=== PATIENT | female | born 1990 | race Caucasian/White ===

== ENCOUNTER 2021-03-27 10:31 | Outpatient (RCR) | payer OTHER, SELFPAY ==
[2021-03-27] MEDS: TETANUS,DIPHTHERIA,AC PERTUSSIS ADULT (0.5 ML) BOOSTRIX IM (10:30)
[2021-03-27] MEDS: RHO(D) IMMUNE GLOBULIN 300 MCG/2 ML SYRINGE IM (10:31)
== END 2021-06-22 23:59 | disposition home or self-care (01) ==
LOC: ANHLAB 10:31
PROVIDERS: PCP Family Medicine; Visit Provider Student in an Organized Health Care Education/Training Program
DX: Z29.13 Encounter for prophylactic Rho(D) immune globulin (principal); O36.0190 Maternal care for anti-D [Rh] antibodies, unspecified trimester, not applicable or unspecified; Z3A.00 Weeks of gestation of pregnancy not specified
CPT/HCPCS: 36415; 85461; 90384; 96372; J2790

== ENCOUNTER 2021-06-12 05:58 | Inpatient (IN) | payer OTHER, SELFPAY ==
[2021-06-12] VITALS (139 sets, daily range): BP systolic 89–190; BP diastolic 41–168; PULSE 25–243; TEMP 36.6–38.4; O2SAT 74–100; BMI 31.4
--- NOTE | 2021-06-12 05:58 | LDADM ---
This patient, Whitney Arboleda, was admitted to Labor/Delivery/Recovery 104 on 06/12/21 at 05:58. Plans for labor, pain management and were discussed with patient. Patient/family oriented to hospital policies and general routines including ID bracelet, bed and alarms, visiting hours, pain management, procedures, bathroom and other care routines, personal items, smoking policy, room service/diet and guest tray routines, security routines, and visiting hours. Patient/Family are encouraged to report perceived risks to care and to ask questions if they do not understand what they are told or what they should do. See OBIX for further documentation.
--- OUTSIDE RECORDS SUMMARY | 2021-06-12 06:02 | XMS_ITS ---
:1990 Author Care Team Providers Name Role Phone SATYA BARRY MD Primary Care Provider [phone] Allergies Code Code System Name Reaction Severity Status Onset Sulfa Rash Moderate Active ? (Sulfonamid e Antibiotics ) Medications Name Status Start Date Stop Date ? ? escitalopram 10 mg tablet Active ? Not av ailable Take 1 tablet every day by oral route. fluticasone propionate 50 mcg/actuation nasal spray,suspension C ompleted ? 07/13/2019 [place] 1 spray every day by intranasal route. hydroxyzine HCl 25 mg tablet Active ? Not available TAKE 1 TABLET BY MOUTH THREE TIMES DAILY NEEDED sertraline 50 mg tablet Completed ? 07/13/19 20 Take 1 tablet every day by oral route. Problems Name Status Onset Date Source ? Anxiety Active 01/27/2019 ? At High Risk for Breast Cancer Active 03/17/2021 ? Blood Group O Rh(D) Negative Active 04/04/2021 ? Procedures Notes: Pt. denies. Results Lab Results Date Name Specimen Result Interpretation Description Value Range Status Address ? 07/13/2019 TSH + ? Tsh 1.110 0.450-4.500 Final L [facility]: Free T4, uIU/mL uIU/mL [address], [place] ? ? ?
--- OUTSIDE RECORDS SUMMARY | 2021-06-12 06:02 | XMS_ITS ---
:1990 Author Care Team Providers Name Role Phone JeradMagnolia Primary Care Provider Unavailable Allergies Code Code System Name Reaction Severity Status Onset Sulfa ? ? Active ? (Sulfonamid e Antibiotics ) Medications Name Status Start Date Stop Date ? ? cefadroxil 500 mg capsule Completed 06/18/20172017 take 1 capsule by oral route every 12 hours for 10 days cephalexin 500 mg tablet Completed 06/21/2017 018 take 1 tablet by oral route every 6 hours ciprofloxacin 500 mg tablet Completed 08/27/201206/2012 take 1 tablet (500MG) by oral route every 12 hours dicloxacillin 500 mg capsule Completed 06/16/2017 take 1 capsule by oral route every 6 h ours 1 hour before a meal or 2 hours after a meal dicyclomine 20 mg tablet Completed ? 020 escitalopram 10 mg tablet Active ? Not av ailable Flagyl 500 mg tablet Completed 11/19/2016 11/19/2016 take 1 tablet by oral route 2 times every day fluticasone propionate 50 Completed ? 2019 mcg/actuation nasal spray,suspension hydroxyzine HCl 25 mg tablet Active ? Not available ketorolac 10 mg tablet Completed ? 0 Mirena 20 mcg/24 hours (7 yrs) Active 08/08/2017 N ot available 52 mg intrauterine device Mononessa (28) 0.25 mg-35 mcg tablet Completed 12/31/2011 01/01/2013 take 1 tablet by oral route every day
--- OUTSIDE RECORDS SUMMARY | 2021-06-12 06:02 | XMS_ITS | Continuity of Care Document ---
:1990 Author Organization [facility] Care Team Providers Name Role Phone DOD-PR Unavailable Unavailable Results Combined list of recent chemistry, hematology and other laboratory results from [facility] [employer] [facility], ranging from 15 months to all on record, depending upon the facility. Order Results Value Reference Date Interpretation Specimen Commen ts Source Name Range MMRV Varicella POSITIVE 04/06 INTERPRETATION(S) SERUM INT ERPRETAT 375th Panel : NEGATIVE: ION(S): Medi cara Virus Ab Absence of NEGATIVE: Gr oup IgG detectable VZV Absence o f Hermel[place] IgG antibodies. A detect able AFB negative result VZV IgG ([facility]) indicates no antibodies. detectable VZV A negativ e antibody, but result does not rule out indica shawna acute infection. no It should be detectable noted that the VZV test usually antibody, scores negative but does in infected not rule patients during out acut e the incubation infection . period and the It should early stages of be noted infection. If that the exposure to test varicella-zoster usually virus is scores
[2021-06-12] MEDS: LACTATED RINGERS 1,000 ML 125 ML IV CONT ×2 (06:35→13:45)
[2021-06-12] MEDS: OXYTOCIN 30 UNITS/NS 500 ML 30 UNITS/500 ML BAG IV CONT (06:35)
[2021-06-12 06:49] LABS: Basophils Absolute Auto 0.1 K/mm3 (0.0-0.1); Basophils Percent Auto 0.6 % (0.2-1.2); Eosinophils Absolute Auto 0.1 K/mm3 (0-0.3); Eosinophils Percent Auto 0.8 % (0-4.4); Hematocrit 38.1 % (37.0-47.0); Hemoglobin 13.3 g/dL (12.0-15.0); Immature Granulocyte Absolute 0.18 K/mm3 (0.00-0.031); Immature Granulocyte Percent A 2.3 % (0-0.5); Lymphocytes Absolute Auto 2.49 K/mm3 (0.9-3.2); Lymphocytes Percent Auto 31.6 % (18.3-44.2); Mean Corpuscular HGB Conc 34.9 g/dl (32-36); Mean Corpuscular Hemoglobin 32.8 pg (26-34); Mean Corpuscular Volume 93.8 fl (80-100); Mean Platelet Volume 10.5 fl (7.4-10.4); Monocytes Absolute Auto 0.5 K/mm3 (0.1-0.6); Monocytes Percent Auto 6.9 % (2.6-8.5); Neutrophils Absolute Auto 4.6 K/mm3 (1.3-6.7); Neutrophils Percent Auto 57.8 % (45.5-73.1); Platelet Count Result 240 k/mm3 (150-375); Red Blood Count 4.06 M/mm3 (4.2-5.4); Red Cell Distribution Width 12.4 % (11.5-14.5); White Blood Count 7.9 K/mm3 (4.5-10.0)
--- NOTE | 2021-06-12 07:40 | PM.IMHP ---
H&P: HPI History of Present Illness Date/Time: 06/12/21 07:40 Chief Complaint: intrauterine at term Narrative: 30 yo at 39w3d who presents for elective IOL. Her has been uncomplicated thus far. She denies any regular contractions, leakage of fluid or vaginal bleeding. Review of Systems Cardiovascular: Cardiovascular: Denies chest pain, Denies leg edema, Denies palpitations, Denies dyspnea and Denies dyspnea on exertion Respiratory: Respiratory: Denies cough, Denies dyspnea and Denies dyspnea on exertion Gastrointestinal: Gastrointestinal: Denies abdominal pain, Denies constipation, Denies diarrhea, Denies nausea and Denies vomiting Genitourinary: Genitourinary: Denies hematuria, Denies urinary frequency, Denies dysuria, Denies pelvic pain, Denies urinary incontinence and Denies vaginal discharge Neurologic: Reports system reviewed and no additional complaints, except as documented Psychiatric: Psychiatric: Reports no additional psychiatric complaints Endocrine: Endocrine: Denies palpitations [facility], [facility] Family History Family History (Updated 05/16/21 @ 12:39 by Dedrick Howard RN) Mother Breast cancer in female Grandparent Breast cancer in female Social History Social History Substance use: never Spiritual care concerns: No Meds Home Medications and Allergies Home Medications Medication Instructions Recorded Confirmed Type prenat.vits,cara,pvr-mmvy-kvxzt 1 tablet PO DAILY 05/16/21 05/16/21 History [ #2] sertraline 50 mg PO DAILY 05/16/21 05/16/21 History Allergies Allergy/AdvReac Type Severity Reaction Status Date / Time sulfamethoxazole Allergy Mild Verified 04/29/17 15:31 trimethoprim Allergy Mild Verified 04/29/17 15:31 Vital Signs Vital Signs - 24 hr 06/12/21 06:21 06/12/21 06:22 06/12/21 06:30 Temperature 36.8 C Pulse Rate 77 74 Blood Pressure 121/81 127/87 06/12/21 06:46 06/12/21 07:01 06/12/21 07:16 Temperature Pulse Rate 79 72 68 Blood Pressure 110/91 H 121/79 118/83 06/12/21 07:30 Temperature Pulse Rate 71 Blood Pressure 125/83 Exam Const: General: no acute distress Eyes: EOM: EOMs intact bilaterally Neck: Neck: supple Thyroid: thyroid normal Chest: Breast/axilla inspection: normal inspection of the breasts Breast/axilla palpation: normal palpation of the breasts, normal palpation of the axillae and no axillary lymphadenopathy Resp: Effort & Inspection: normal respiratory effort Auscultation: clear to auscultation bilaterally Cardio: Rate: regular rate Rhythm: regular rhythm GI: Inspection: non-distended and other (Gravid) GI Palp: Yes Soft to palpation, No Tenderness to palpation present (GI) and No Guarding due to palpation present (GI) Auscultation: normal bowel sounds : Speculum Exam - Vagina: No vaginal bleeding OB/external & speculum: external exam normal; No vaginal bleeding Skin: General skin exam: normal color and no rashes or lesions noted Neuro: Cognition (Neuro): normal cognition Speech: normal speech Extrem: General: normal to inspection Psych: Mental Status: mental status grossly normal Affect: normal affect H&P: Results Labs Labs: Short CBC 06/12/21 Range/Units 06:36 WBC 7.9 (4.5-10.0) K/mm3 Hgb 13.3 (12.0-15.0) g/dL Hct 38.1 (37.0-47.0) % Plt Count 240 (150-375) k/mm3 Assessment and Plan Assessment and plan (1) Supervision of high risk , unspecified, third trimester: Code(s): O09.93 - Supervision of high risk , unspecified, third trimester Status: Acute Assessment and Plan: 30 yo at 39w3d who presents for elective IOL admit to L&D routine admission orders Rh neg, will need rhogam PP GBS neg FHT cat 1 pitocin augmentation continuous EFM
--- NOTE | 2021-06-12 10:01 | WPDANESEPP ---
Anes - Eval Pre Procedure Date/Time: 06/12/21 10:01 Pre Op Diagnosis: IOL Patient Data Age: 30 Gender: F Height: 1.57 m Weight: 78 kg Last Vital Signs Temp 36.7 C 06/12/21 08:08 Pulse 70 06/12/21 09:30 BP 190/168 H 06/12/21 10:01 Allergies Allergy/AdvReac Type Severity Reaction Status Date / Time sulfamethoxazole Allergy Mild Rash Verified 06/12/21 08:13 trimethoprim Allergy Mild Rash Verified 06/12/21 08:13 Home Medications Medication Instructions Recorded Confirmed Type prenat.vits,cara,xog-[id number]-hsgot 1 tablet PO DAILY 05/16/21 06/12/21 History [ #2] sertraline 50 mg PO DAILY 05/16/21 06/12/21 History Laboratory Tests 06/12/21 06/12/21 06/12/21 06:36 06:36 06:36 WBC 7.9 K/mm3 K/mm3 (4.5-10.0) RBC 4.06 M/mm3 L M/mm3 (4.2-5.4) Hgb 13.3 g/dL g/dL (12.0-15.0) Hct 38.1 % % (37.0-47.0) MCV 93.8 fl fl (80-100) MCH 32.8 pg pg (26-34) MCHC 34.9 g/dl g/dl (32-36) RDW 12.4 % % (11.5-14.5) Plt Count 240 k/mm3 k/mm3 (150-375) MPV 10.5 fl H fl (7.4-10.4) Immature Gran % (Auto) 2.3 % H % (0-0.5) Neut % (Auto) 57.8 % % (45.5-73.1) Lymph % (Auto) 31.6 % % (18.3-44.2) [place] % (Auto) 6.9 % % (2.6-8.5) Eos % (Auto) 0.8 % % (0-4.4) Baso % (Auto) 0.6 % % (0.2-1.2) Lymph # (Auto) 2.49 K/mm3 K/mm3 (0.9-3.2) [place] # (Auto) 0.5 K/mm3 K/mm3 (0.1-0.6) Eos # (Auto) 0.1 K/mm3 K/mm3 (0-0.3) Baso # (Auto) 0.1 K/mm3 K/mm3 (0.0-0.1) Abs Immat Gran (auto) 0.18 K/mm3 H K/mm3 (0.00-0.031) Absolute Neuts (auto) 4.6 K/mm3 K/mm3 (1.3-6.7) Absolute Nucleated RBC 0.0 K/mm3 K/mm3 (0.0-0.012) Nucleated RBC % 0.0 % % (0.0-0.2) RPR Pending Blood Type O Negative Antibody Screen Negative Patient hx anesthesia problems: none Family hx anesthesia problems: none Results Review: All pre-operative results and documents have been reviewed as part of the pre-operative evaluation. [facility] Past Medical History Medical History (Updated 06/12/21 @ 10:02 by Saniya Johansen CRNA) Anxiety Obese Family History Family History Mother Breast cancer in female Grandparent Breast cancer in female Social History Social History Substance use: never Spiritual care concerns: No Exam Day of Procedure 06/12/21 10:01 Patient weight: obese Heart: regular rate and rhythm Lungs: clear to auscultation Airway: Mallampati scale
[2021-06-12 11:22] LABS: Rapid Plasma Reagin Non-Reactive (NonReactive)
[2021-06-12] MEDS: ONDANSETRON INJ 4 MG/2 ML VIAL IV PUSH (17:51)
[2021-06-12] MEDS: miSOPROStol 200 MCG TABLET 1000 MCG RECTAL (22:05)
--- NOTE | 2021-06-12 22:10 | PM.OBPRVD ---
OB - Delivery Note Procedure Delivery date: 05/04/21 Intrapartal events: Ineffective Pushing and Prolonged 2nd Stage > 2.5 hours Induction method: per pitocin protocol Delivery augmentation: rupture of membranes Delivery monitor: external FHT and internal uterine Route of delivery: forceps Indication for instrumentation: other (prolonged 2nd stage of labor) Episiotomy description: None Laceration Description: Vaginal - 1st Degree Delivery repair: vicryl Specimen: Yes (placenta) Quantitative Blood Loss (ml): 250 Anesthesia type: Epidural Disposition: floor Narrative: Patient had been pushing for 3 hours. skull was noted to be +2 station and OP position. She had a moderate amount of caput. FHT had mod variability, acceleration and occasional decelerations with pushing. Discussed forceps assisted vaginal delivery vs section. Pt was consented and agreed to FAVD. Patient positioned in stirrups with the bed broken, dorsal lithotomy. Her perineum was prepped and draped in the usual fashion. The perineal body was normal length. Pelvis felt to be adequate. + 3 station. Mod caput. Sagital suture palpated and found to be direct A-P plane with possibly 5 degrees leftward axis. Phantom application of blades performed prior to placing left hand into vaginal sidewall. Left blade gently inserted along cloth doubling machine operator's hand to ensure no vag lacerations - advanced along the skull with the axillary prominence in a gentle fashion. In a similar fashion, the right blade was gently placed. Blade placement was then double checked to ensure adequate placement. The forceps shank articulated well in the midline. A fingerbreadth below the suture on either side was noted. With the next contraction, gentle downward pressure was applied in sync with the contraction / pushing effort. Adequate descent was noted. There were a total of 1 pull, and the forceps were disarticulated as the head delivered. The remainder of the was delivered atraumatically. A segment of cord taken for gases and sample collected as above. The placenta delivered spontaneously and found to be intact. The perineum was inspected and a right vaginal laceration was noted. Routine repair of the laceration with 3-0 vicryl. The uterus was noted to be firm. Due to prolonged second stage, prophylactic misoprostol was placed rectally. All sponge, lap, and needle counts correct x 2. Patient taken out of lithotomy position and tolerated procedure very well. NICU present for delivery. Baby Date of : 06/12/21 Time of : 21:49 Weeks of gestation at delivery: 39 Infant gender: Female Weight (pounds): 6 Weight (ounces): 13 presentation: vertex position: Right Occiput Posterior Placenta delivery description: Spontaneous cord vessel description: 3 Vessels score one minute: 8 score five minutes: 9
[2021-06-12] MEDS: OXYTOCIN 30 UNITS/NS 500 ML 30 UNITS/500 ML BAG 125 UNITS IV CONT (22:16)
[2021-06-13] VITALS (7 sets, daily range): BP systolic 115–125; BP diastolic 60–79; PULSE 67–104; RESP 16–20; TEMP 36.3–37.8; O2SAT 97–99
[2021-06-13] MEDS: IBUPROFEN 600 MG TABLET PO ×4 (01:10→23:26)
[2021-06-13] MEDS: ACETAMINOPHEN 325 MG TABLET 650 MG PO ×2 (01:10→11:55)
[2021-06-13] MEDS: LANOLIN (LANSINOH) 7.5 GM CREAM 1 APPLIC TOPICAL (01:11)
[2021-06-13 05:21] LABS: Hematocrit 33.4 % (37.0-47.0); Hemoglobin 11.4 g/dL (12.0-15.0)
--- NOTE | 2021-06-13 07:37 | WPDANLDPN2 ---
Anes-Prog Note L&D Date/Time: 06/13/21 07:37 Comfortable throughout: labor Neuraxial method: epidural Epidural/Spinal procedure site: clean & non-tender Neuro status: Neuro function grossly intact. Cardiovascular status: normal Respiratory status: normal Airway patency: baseline Mental status: baseline Post-Op hydration status: normal Vital Signs: Last Vital Signs Temp 98.9 F 06/13/21 04:00 Pulse 78 06/13/21 04:00 Resp 16 06/13/21 04:00 BP 119/79 06/13/21 04:00 Pulse Ox 98 06/13/21 04:00 Pain score (VAS): 0 I/O: Intake & Output 06/12/21 06/12/21 06/13/21 15:59 23:59 07:59 Intake Total 1000 1500 Output Total 250 70 Balance 1000 1250 -70 Post-procedural complaints: none Patient feedback: Patient satisfied with anesthetic care.
--- NOTE | 2021-06-13 07:38 | WPDANESPN ---
Anes - Prog Note Post-Op Date/Time: 06/13/21 07:38 Cardiovascular status: normal Respiratory status: normal Airway patency: baseline Mental status: baseline Post-Op hydration status: normal Vital Signs: Last Vital Signs Temp 98.9 F 06/13/21 04:00 Pulse 78 06/13/21 04:00 Resp 16 06/13/21 04:00 BP 119/79 06/13/21 04:00 Pulse Ox 98 06/13/21 04:00 Pain Score (VAS): 0 I/O: Intake & Output 06/12/21 06/12/21 06/13/21 15:59 23:59 07:59 Intake Total 1000 1500 Output Total 250 70 Balance 1000 1250 -70 Laboratory Tests 06/13/21 04:10 06/12/21 06/12/21 06/13/21 06:36 06:36 04:10 Hgb 11.4 L Hct 33.4 L RPR Non-reactive Blood Type O Negative Antibody Screen Negative Screen Baby's Blood Type Baby's FLOWER Doses of RhIg Required 06/13/21 04:10 Hgb Hct RPR Blood Type O Negative Antibody Screen TNP Screen Negative Baby's Blood Type O pos Baby's FLOWER Negative Doses of RhIg Required 1 Post-procedural complaints: none Patient Feedback: Patient satisfied with anesthetic care.
[2021-06-13] MEDS: DOCUSATE SODIUM 100 MG CAPSULE PO ×2 (07:45→17:03)
[2021-06-13] MEDS: MULTIVIT/MIN/PREN/FOL AC/IRON TABLET 1 TAB PO (07:45)
[2021-06-13] MEDS: SERTRALINE HCL 50 MG TABLET PO (07:49)
[2021-06-13] MEDS: RHO(D) IMMUNE GLOBULIN 300 MCG/2 ML SYRINGE IM (10:09)
--- NOTE | 2021-06-13 13:03 | PM.OBPNVD ---
OB - PN: Subj Subjective Date/time seen: 06/13/21 13:03 Patient comments: no complaints, pain well controlled and tolerating diet [place] feeding status: exclusively breast feeding Narrative: patient doing well this AM. No complaints. Pain is well controlled. She reports minimal bleeding. She is ambulating and voiding without difficulty. She is tolerating PO. She denies N/V, fever, chills. OB - PN: Obj Data Labs CBC & Chem 7: 06/13/21 04:10 Labs: Laboratory Results - last 24 hr 06/13/21 06/13/21 04:10 04:10 Hgb 11.4 L Hct 33.4 L Blood Type O Negative Antibody Screen TNP Screen Negative Baby's Blood Type O pos Baby's FLOWER Negative Doses of RhIg Required 1 OB - PN A/P Plan day: 1 Plan: routine care Comments: patient doing well H/H stable continue routine care Time Spent With Patient Time: Total time spent is greater than 50% in coordination of care (as documented) at patient's floor/unit and/or counseling patient: Time with patient: less than 15 minutes Review of Systems Review of Systems: All systems reviewed & are unremarkable except as noted in HPI and below Exam Const: General: comfortable and no acute distress Resp: Effort & Inspection: normal respiratory effort Cardio: Rate: regular rate GI: GI Palp: Yes Soft to palpation and No Tenderness to palpation present (GI) Auscultation: normal bowel sounds Other: fundus firm and below umbilicus. Psych: Affect: normal affect
--- NOTE | 2021-06-13 13:04 | PM.OBDSVD ---
DS: Admitting Diagnosis Discharge Date 06/14/21 Admitting Diagnosis intrauterine at term OB - DS: Summary OB Procedures : None OB Procedures Intrapartum: Spontaneous Vag Delivery and Forceps OB Procedures: : None and RHo (D) lg Peripartum Data Laceration Description: Labial Episiotomy description: None complications: none Status at Discharge Functional status at discharge: independent ambulation Overall status at discharge: patient is back to baseline Time Spent with Patient Time attestation: Total time spent providing and/or coordinating discharge services: Time spent: Less than 30 minutes Exam Const: General: comfortable and no acute distress Resp: Effort & Inspection: normal respiratory effort Auscultation: clear to auscultation bilaterally Cardio: Rate: regular rate GI: GI Palp: Yes Soft to palpation Auscultation: normal bowel sounds Other: Fundus firm below umbilicus Psych: Appearance: grossly normal Mental Status: mental status grossly normal Affect: normal affect DS: Data Data Completed and Pending Labs on day of discharge: Labs from last 24 hours 06/13/21 06/13/21 04:10 04:10 Hgb 11.4 L Hct 33.4 L Blood Type O Negative Antibody Screen TNP Screen Negative Baby's Blood Type O pos Baby's FLOWER Negative Doses of RhIg Required 1 Discharge Plan Discharge Discharging Clinician: John Bello Anticipated Discharge Date/Time: 06/14/21 07:00 Patient Disposition: Home, Self-Care Activity: as tolerated and pelvic rest Diet: regular Patient Instructions: Antibiotic Form, Vaginal Delivery (DC) Stand Alone Forms: General Discharge Information Follow-up/Referrals: John Bello MD [Physician] - 4 Weeks Discharge Medications: New acetaminophen [Mapap (acetaminophen)] 325 mg Tablet 650 mg PO Q6H PRN (Reason: Mild Pain (1-3) Or Headache) Qty: 30 RF: 0 ibuprofen 600 mg Tablet 600 mg PO Q6H PRN (Reason: Cramping) Qty: 30 RF: 0 Continued sertraline 50 mg Tablet 50 mg PO DAILY RF: 0 #2 Tablet 1 tablet PO DAILY RF: 0 Date of admission: 06/12/21 05:58 Primary Care Provider: Nunu,Cristy Staton Admitting Provider: John Bello Attending physician on admission: John Bello Condition: Stable
--- NOTE | 2021-06-13 13:16 | PC.NURSE ---
Received report from primary RN. 0815 - Infant placed skin 2 skin and reviewed feeding cues. No feeding cues at this time. Mom verbalize understanding to call for assistance if baby doesn't latch or is painful.
[2021-06-14] MEDS: MULTIVIT/MIN/PREN/FOL AC/IRON TABLET 1 TAB PO (08:09)
[2021-06-14] MEDS: IBUPROFEN 600 MG TABLET PO (08:09)
[2021-06-14 08:50] VITALS: BP 109/61; PULSE 69; RESP 18; TEMP 36.3; O2SAT 98
--- NOTE | 2021-06-14 09:43 | PC.NURSE ---
Patient instructed on viewing the discharge video Mother & Baby Care, The First Two Weeks . Patient was given the opportunity and encouraged to ask questions. Patient verbalized understanding of information shared and has been given the mother/baby guide for home reference.
--- NOTE | 2021-06-14 12:37 | PC.NURSE ---
1040 - Consulted with patient, reviewed infant feeding cues, frequencies, duration of feedings, feeding elimination flow sheet, and signs of adequate intake. Demonstrated stimulation techniques to wake for feeding. Assisted with to breast. Reviewed positioning/alignment, holding breast and asymmetrical latch on. was able to latch correctly on left breast with cross cradle position. Infant nursed eagerly, with steady draws and occasional swallowing noted. Reviewed improving milk transfer with stimulating the breast with effectively , nipple stroking/stretching and/ or pumping. Reviewed signs of a correct latch, effective nursing and suck swallow ratio. Infant was able to maintain latch without discomfort to mother. Nipple care reviewed. Instructed mother to call out for RN assistance if she is unable to latch infant for feeding or she has discomfort with nursing. Instructed feeding should be initiated three hours from start of last feeding or if feeding cues are noted before. Mother voiced understanding of information shared. 1115 - Mother verbalizes she is able to independently latch infant with appropriate positioning/alignment. She denies any nipple discomfort, is feeding as required and waking to feed if needed. is currently meeting outcomes for weight, output, jaundice and feeding frequencies. is inconsolable after collaborative feeding from right breast in football position, then left breast in cross cradle and again to right breast. Mom is considering supplementing with formula at this time. Discussed the risks and benefits with mom. Reviewed resources in the Mom/Baby guide. Instructed mother to call out for future feedings if assistance is needed. RN reported to primary RN. Carolina Lagunas RN is waiting for another void from before discharging to home. Reported to RN that mom chose to supplement with formula prior to going home.
[2021-06-15 09:29] VITALS: BP 131/86; PULSE 62; RESP 20; TEMP 36.9; O2SAT 100
== END 2021-06-14 12:20 | disposition home or self-care (01) | DRG 560 ==
LOC: ANHLDR 06:33 → ANHOB2 06-13 01:21
PROVIDERS: Admitting Provider Student in an Organized Health Care Education/Training Program; PCP Family Medicine; Visit Provider Student in an Organized Health Care Education/Training Program
DX: O70.0 First degree perineal laceration during delivery (principal); O63.1 Prolonged second stage (of labor); O76 Abnormality in fetal heart rate and rhythm complicating labor and delivery; Z3A.39 39 weeks gestation of pregnancy; Z37.0 Single live birth
CPT/HCPCS: 36415; 85014; 85018; 85025; 85461; 86592; 86850; 86900; 86901; 90384; A9270; J2405; J2590; J2790; J2795; J7120

== ENCOUNTER 2023-08-20 10:27 | Outpatient (CLI) | payer OTHER, SELFPAY ==
--- NOTE | ~2023-08-20 | MR_ITS ---
MR breast BI wo/w con 08/20/2023 11:51 CDT INDICATION: Increased risk of breast cancer TECHNIQUE: MRI of the breasts perform using standard protocol pre-and post IV contrast with the follo wing sequences: Axial T2 STIR, axial T1, axial vibrant T1 with fat suppression precontrast and multip hasic postcontrast. 10 cc MultiHance administered intravenously. COMPARISON: Left breast ultrasound dated 01/13/2019 FINDINGS: There are no abnormalities on the precontrast sequences. There is minimal background parenc hymal enhancement. No enhancing lesions following contrast administration. No areas of enhancement meeting threshold criteria on CAD analysis. No evidence of signal abnormalities in the axillary or i nternal mammary node distributions. LEFT BREAST: No signal abnormalities on precontrast sequences. There is minimal background parenchym al enhancement. There is a focus of nonmass-like enhancement in the upper inner quadrant of the left breast at 11:00, middle third measuring 9 x 7 x 4 mm with rapid plateau enhancement which is heteroge neous. No evidence of signal abnormalities in the axillary or internal mammary node distributions.] IMPRESSION: 1: Right breast: Negative. No evidence of malignancy. 2: Left breast: Focal nonmass-like enhancement of the left breast at 11:00, middle third measuring 9 x 7 x 4 mm characterized by rapid plateau enhancement. This corresponds to the area of the hypoechoi c mass seen on prior ultrasound dated 01/13/2019. Correlation with diagnostic baseline bilateral mammo gram and left breast ultrasound recommended. BI-RADS CATEGORY 0 - INCOMPLETE STUDY, NEED ADDITIONAL IMAGING EVALUATION. Reviewed, dictated and finalized at location A. IMPRESSION: 1: Right breast: Negative. No evidence of malignancy. 2: Left breast: Focal nonmass-like enhancement of the left breast at 11:00, mi ddle third measuring 9 x 7 x 4 mm characterized by rapid plateau enhancement. T his corresponds to the area of the hypoechoic mass seen on prior ultrasound kathie ed 01/13/2019. Correlation with diagnostic baseline bilateral mammogram and left breast ultrasound recommended. BI-RADS CATEGORY 0 - INCOMPLETE STUDY, NEED ADDITIONAL IMAGING EVALUATION.
== END 2023-08-20 10:28 | disposition home or self-care (01) ==
LOC: ANHIMG 10:27
PROVIDERS: PCP Nurse Practitioner Family
DX: Z12.31 Encounter for screening mammogram for malignant neoplasm of breast (principal); R92.8 Other abnormal and inconclusive findings on diagnostic imaging of breast
CPT/HCPCS: 77049; A9577; C8908